=== PATIENT | male | born 1985 | race Caucasian/White ===

== ENCOUNTER 2016-06-13 10:16 | Emergency (ER) | payer SELFPAY ==
[~2016-06-13 10:16] MED LIST: VALIUM-DPS5 MG PO; ZOFRAN4 MG PO
--- NOTE | 2016-06-14 14:08 | NUR ---
Pt triggered for high ED user. Attempted to contact pt. No current phone number available. Mailed letter to patient with information on [facility].
--- NOTE | 2016-06-16 16:40 | ER ---
ADMIT: 06/13/2016 RM/LOC: ER [facility] MR#: [id number] [id number] [place], [place] [address] KARTHIK WOODS [address] [place] [address] Emergency Room Report SEX: M AGE: 31 : 1985 DATE: 06/13/2016 For chief complaint, history of present illness, past medical history, medications, allergies, review of systems, including physical exam, please see my T-sheet. INTERIM HISTORY: The patient is a 31-year-old white male, who presents to the emergency room with a red watery eye, had some URI symptoms last couple days. Clinical findings are consistent with sinusitis and conjunctivitis. The patient was given Polytrim and amoxicillin. Home rest, activity as tolerated. Drink plenty of fluids. Continue any nyid-mac-hvfluoh medications as needed for symptomatic relief. The patient is in stable condition. EMIL Way / Bernardino Mann MD / don JOB #: [id number] CC: Bernardino Mann MD, Attending Physician Ephraim Haddad MD, Family Physician
== END 2016-06-13 10:49 | disposition home or self-care (01) ==
LOC: ER 10:16
DX: H10.9 Unspecified conjunctivitis (principal); J32.9 Chronic sinusitis, unspecified; F17.210 Nicotine dependence, cigarettes, uncomplicated

== ENCOUNTER 2016-09-21 19:38 | Emergency (ER) | payer SELFPAY ==
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
== END 2016-09-21 19:50 ==
LOC: ER 19:38
DX: F10.99 Alcohol use, unspecified with unspecified alcohol-induced disorder (principal); F17.200 Nicotine dependence, unspecified, uncomplicated; Y90.8 Blood alcohol level of 240 mg/100 ml or more

== ENCOUNTER 2016-12-18 14:53 | Emergency (ER) | payer SELFPAY ==
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
== END 2016-12-18 16:07 | disposition home or self-care (01) ==
LOC: ER 14:53
DX: S93.491A Sprain of other ligament of right ankle, initial encounter (principal); S96.911A Strain of unspecified muscle and tendon at ankle and foot level, right foot, initial encounter; F17.210 Nicotine dependence, cigarettes, uncomplicated; X50.1XXA Overexertion from prolonged static or awkward postures, initial encounter; Y93.39 Activity, other involving climbing, rappelling and jumping off; Y92.009 Unspecified place in unspecified non-institutional (private) residence as the place of occurrence of the external cause